=== PATIENT | female | born 2000 | race African-American/Black ===

== ENCOUNTER 2020-10-26 15:51 | Emergency (ER) | payer BC, SELFPAY ==
[2020-10-26] VITALS (17 sets, daily range): BP systolic 107–119; BP diastolic 66–88; PULSE 63–93; RESP 13–201; TEMP 36.6; O2SAT 97–100
--- NOTE | ~2020-10-26 | CT_ITS ---
EXAMINATION: CT brain wo con EXAM DATE: 10/26/2020 16:22 INDICATION: Syncope. Fall. TECHNIQUE: Spiral CT of the head was performed without contrast. Axial, coronal and sagittal images were reviewed. The dose-length product (DLP) for this examination was 605.33 mGy-cm. The exposure w as tailored according to patient size, and iterative reconstruction (ASIR) was used as additional dos e reduction technique. There is no prior study for comparison. FINDINGS: There is no acute intraparenchymal hemorrhage. No evidence of intraparenchymal brain mass lesion. No evidence of acute infarction. There is no mass effect or midline shift. The ventricles are normal in size. There are no extra-axial collections. There are no acute calvarial fractures. T he orbits are unremarkable. Soft tissue is unremarkable. The visualized sinuses and mastoid air jackelyn ls are well aerated. IMPRESSION: 1. Normal head CT examination. Reviewed, dictated and finalized at location A. DEVELOPER
--- NOTE | ~2020-10-26 | XR_ITS ---
EXAMINATION: XR chest 1V portable EXAM DATE: 10/26/2020 16:37 INDICATION: Syncope. Nausea and dizziness. TECHNIQUE: Portable AP frontal chest x-ray was obtained. Comparison is made to prior examination from 12/05/2015. FINDINGS: The lungs are clear. There are no pleural effusions. The cardiomediastinal silhouette is within normal limits. There is no pneumothorax suspected. There is mild lower thoracic levoscoliosi s. IMPRESSION: No acute cardiopulmonary findings. Reviewed, dictated and finalized at location A. HER DRYING MACHINE OPERATOR
--- NOTE | 2020-10-26 15:54 | ECG_ITS ---
Measurements Intervals [place] Rate: 61 P: 56 VA: 146 QRS: 67 QRSD: 83 T: 19 QT: 397 QTc: 402 Interpretive Statements SINUS RHYTHM WITH SINUS ARRHYTHMIA BORDERLINE ST ABNORMALITY- INFERIOR LEADS BORDERLINE ECG Electronically Signed On 10-27-2020 11:57:39 RADIO TELEVISION ANNOUNCER by Aleksey Grant D.O.
[2020-10-26 16:03] LABS: Glucose Point of Care 79 (65-105)
[2020-10-26 16:12] LABS: Basophils Percent Auto 0.2 % (0.2-1.2); Eosinophils Percent Auto 0.4 % (0-4.4); Hematocrit 37.5 % (37.0-47.0); Hemoglobin 12.4 g/dL (12.0-15.0); Lymphocytes Absolute Auto 2.41 K/mm3 (0.9-3.2); Lymphocytes Percent Auto 51.5 % (18.3-44.2); Mean Corpuscular HGB Conc 33.1 g/dl (32-36); Mean Corpuscular Hemoglobin 30.9 pg (26-34); Mean Corpuscular Volume 93.5 fl (80-100); Mean Platelet Volume 9.6 fl (7.4-10.4); Monocytes Absolute Auto 0.2 K/mm3 (0.1-0.6); Monocytes Percent Auto 4.7 % (2.6-8.5); Neutrophils Percent Auto 43.2 % (45.5-73.1); Platelet Count Result 278 k/mm3 (150-375); Red Blood Count 4.01 M/mm3 (4.2-5.4); Red Cell Distribution Width 11.8 % (11.5-14.5); White Blood Count 4.7 K/mm3 (4.5-10.0)
--- NOTE | 2020-10-26 16:12 | ED.SYNCOPE ---
HPI - Syncope General Chief Complaint: Syncope Stated Complaint: syncopal episode Time Seen by Provider: 10/26/20 16:02 Source: RN notes reviewed History of Present Illness HPI narrative: Patient presents to emergency department from work for syncopal episode. Patient states she was working secondary to began to feel nauseous. States she then sat down and put her head between her knees and then had a syncopal episode she was caught by coworkers and laid on the ground. Patient states that she feels fine at this time she denied having any numbness or tingling chest pain shortness of breath or any other symptoms. She states that this is her third syncopal episode in the past year on her first episode she came to the emergency department was had no further work-up denies any other symptoms at this time Related Data Home Medications Medication Instructions Recorded Confirmed cariprazine [Vraylar] 1.5 mg PO DAILY 10/26/20 hydroxyzine HCl [Atarax] 25 mg PO TID PRN 10/26/20 trazodone 50 mg PO HS 10/26/20 Allergies Allergy/AdvReac Type Severity Reaction Status Date / Time No Known Allergies Allergy Verified 10/26/20 15:54 Review of Systems Review of Systems: Narrative: Gen.: Denies fevers or chills Eyes: Denies eye pain or visual change ENT: Denies congestion Respiratory: Denies shortness of breath or cough CV: Denies chest pain or palpitations reports syncope GI: Denies abdominal pain nausea, emesis or diarrhea denies b Musculoskeletal: Denies back pain or muscle pain Neuro: Denies numbness, tingling, weakness or focal weakness Skin: Denies rash Except as documented, all other systems reviewed and negative ON LICENSE OF [facility] Past Medical History Medical History (Updated 10/26/20 @ 19:00 by Thaddeus Freed DO) Anxiety Social History Social History (Updated 10/26/20 @ 16:14 by Thaddeus Freed DO) Smoking status: Never smoker Exam Narrative: Exam Narrative: APPEARANCE: No acute distress, nontoxic, resting in bed EYES: EOMI, PERRL HEENT: Normocephalic, atraumatic, OMM RESPIRATORY: No respiratory distress Clear to auscultation bilaterally with no rhonchi wheezing or rales. CARDIOVASCULAR: Regular rate and rhythm without murmurs rubs or gallops. ABDOMINAL: Soft, nontender, nondistended, no rebound or guarding MUSCULOSKELETAl: Moves all extremities. No clubbing, cyanosis or edema. NEURO: Awake and alert. Following commands, speech normal, no focal deficits SKIN:: Warm, dry. No rashes lesions or abrasions PSYCHIATRIC: Normal affect/mood, Course Course Emergency Course: Discussed with Dr. 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 Discussed need for follow-up with primary care, proper use of medication, and reasons to return to the emergency department. Patient understands and agrees to current treatment plan Vital Signs Vital signs: Vital Signs Temperature 98 F 10/26/20 15:53 Pulse Rate 63 10/26/20 15:53 Respiratory Rate 201 H 10/26/20 15:53 Blood Pressure 116/80 10/26/20 15:53 Pulse Oximetry 100 10/26/20 15:53 Temperature 98 F 10/26/20 15:53 Pulse Rate 75 10/26/20 17:16 Respiratory Rate 15 10/26/20 17:16 Blood Pressure 115/78 10/26/20 17:00 Pulse Oximetry 100 10/26/20 17:01 MDM - Syncope MDM Narrative Medical decision making narrative: Patient's episode of syncope is felt due to high risk cause. Syncopal episode was brief and patient is now back to normal mental status. EKG is reviewed without high-risk changes for syncope: There are no signs of prolonged QT or Brugada syndrome. Patient ambulates with a steady gait and is felt to be a reasonable candidate for further evaluation as an outpatient Lab Data Res
--- NOTE | 2020-10-26 16:18 | PC.NURSE ---
Called lab to add on Trop
[2020-10-26 16:25] LABS: Anion Gap 8 mmol/L (8-16); Blood Urea Nitrogen 10 mg/dL (7-17); Calcium 9.5 mg/dL (8.4-10.2); Carbon Dioxide 24 mmol/L (22-30); Chloride 108 mmol/L (98-107); Estimated CRCL calculation 103 ml/min; Estimated Glomerular Filt Rate > 60; Glucose 84 mg/dL (65-105); Potassium 3.6 mmol/L (3.4-5.0); Sodium 140 mmol/L (137-145)
[2020-10-26 16:37] LABS: Troponin I < 0.012 ng/mL (0.000-0.034)
[2020-10-26] MEDS: SODIUM CHLORIDE 0.9% IV 1,000 ML 999 ML IV CONT (16:42)
--- NOTE | 2020-10-26 17:29 | PC.NURSE ---
Ambulatory to bathroom without difficulty.
[2020-10-26 17:31] LABS: Add Urine Microscopic? YES; Appearance Urine Clear (Clear); Bilirubin Urine Negative (Negative); Blood Urine Negative (Negative); Color Urine Yellow (Yellow); Glucose Urine UA Negative (Negative); Ketones Urine Negative (Negative); Leukocyte Esterase Ur Negative LEU/UL (Negative); Mucus Urine Heavy /lpf; Nitrate Urine Negative (Negative); Protein Urine 1+ mg/dL (Negative); RBC Urine 0-2 /hpf (0-2); Squamous Epithelial Cell Urine Few /hpf (Few); Urobilinogen Urine Negative mg/dL (<2.0); WBC Urine 0-3 /hpf
== END 2020-10-26 19:00 | disposition home or self-care (01) ==
PROVIDERS: Emergency Medicine; Emergency Provider Emergency Medicine; PCP Family Medicine
DX: R55 Syncope and collapse (principal); F41.9 Anxiety disorder, unspecified
CPT/HCPCS: 36415; 70450; 71045; 80048; 81001; 81025; 82948; 84484; 85025; 93005; 96360; 96361; 99284; J7030